=== PATIENT | female | born 1955 | race Caucasian/White ===

== ENCOUNTER 2019-04-05 16:05 | Observation (INO) | payer MEDICARE, OTHER ==
[2019-04-05] MEDS ORDERED: 0.9 % SODIUM CHLORIDE 1,000 ML IV ONE (16:37)
[2019-04-05] MEDS ORDERED: ONDANSETRON HCL/PF 4 MG/ 2ML VIAL IVP ONE (16:37)
--- NOTE | 2019-04-05 16:39 | ED Physician Documentation ---
Nausea/Vomiting/Diarrhea - HISTORIAN Historian: patient - HPI Stated Complaint: N/V FLU EXPOSURE Chief Complaint: Nausea,Vomiting,Diarrhea Additional Information: 63 year old female presents with c/o exposure to the flu; she c/o nausea that started yesterday; she last ate oatmeal yesterday morning; she had a couple of episodes of diarrhea today; family state that patient had a ? syncopal episode. She has been taking her blood pressure meds and not eating or drinking; she is hypotensive. She states that one of her doctors stated that she did not need blood pressure medication and the other said she did and doubled it. Patient appears to be in no acute distress; does not appear dehydrated; she last took her blood pressure medication at 10 a.m. this morning; it is suggested that hypotensive symptoms are related to medication. Onset: hours Duration: gradual Timing: gradual onset Context: denies: out of country travel Severity: moderate - Associated Symptoms Diarrhea: mild Abdominal Pain: none - ROS CONST: none CVS/RESP: denies: chest pain, shortness of breath, cough GI/: none EYES/ENT: none MS/SKIN/LYMPH: denies: leg swelling NEURO/PSYCH: fainting (? syncopal episode prior to arrival) - PAST HX Past History: diabetes Type 2 Other History: hypertension Surgeries/Procedures: cholecystectomy, hysterectomy, cardiac stent Immunizations: influenza, pneumovax, UTD Allergies/Adverse Reactions: Allergies Allergy/AdvReac Type Severity Reaction Status Date / Time codeine Allergy Verified 04/05/19 16:40 Penicillins Allergy Verified 04/05/19 16:40 Sulfa (Sulfonamide Allergy Verified 04/05/19 16:40 Antibiotics) Home Medications: Ambulatory Orders Medication Instructions Recorded Carvedilol [Coreg] 25 mg PO BS 04/05/19 Insulin Detemir [Levemir Flextouch] 60 unit SQ HS 04/05/19 Losartan Potassium [Cozaar] 50 mg PO DAILY 04/05/19 Metformin HCl [Glucophage] 1,000 [place] [id number] 04/05/19 Warfarin Sodium 7.5 mg PO [id number] 04/05/19 Warfarin Sodium [Coumadin] 10 mg PO [id number] 04/05/19 - SOCIAL HX Smoking History: non-smoker Alcohol Use: none Drug Use: none - FAMILY HX Family History: none - VITAL SIGNS Vital Signs: Vital Signs Temp Pulse Resp BP Pulse Ox 97.7 F 72 20 132/68 95 04/05/19 21:42 04/05/19 21:42 04/05/19 21:42 04/05/19 21:42 04/05/19 21:42 - REVIEWED ASSESSMENTS Nursing Assessment Reviewed: Yes Vitals Reviewed: Yes ED Results Lab/Radiology - Lab Results Lab Results: Lab Results 04/05/19 04/05/19 04/05/19 17:00 16:25 16:25 WBC RBC Hgb Hct MCV MCH MCHC RDW Plt Count Neut % (Auto) Lymph % (Auto) Jay % (Auto) Eos % (Auto) Baso % (Auto) Neut # (Auto) Lymph # (Auto) Jay # (Auto) Eos # (Auto) Baso # (Auto) PT 18.1 Seconds H Seconds (8.8-11.9) INR 1.75 H (0.80-1.10) Sodium 140 mmol/L mmol/L (137-145) Potassium 4.9 mmol/L mmol/L (3.5-5.1) Chloride 99 mmol/L mmol/L (98-107) Carbon Dioxide 28 mmol/L mmol/L (22-30) Anion Gap 17.9 BUN 47 mg/dL H mg/dL (7-17) Creatinine 1.75 mg/dL H mg/dL (0.52-1.04) Estimated Creat Clear 56 Est GFR ( Amer) 38 L (60 - ) Est GFR (Non-Af Amer) 31 L (60 - ) Glucose 123 mg/dL H mg/dL (74-106) Calcium 8.4 mg/dL mg/dL (8.4-10.2) Total Bilirubin 2.8 mg/dL H mg/dL (0.2-1.3) AST 59 U/L H U/L (15-46) ALT 30 U/L U/L (4-35) Alkaline Phosphatase 97 U/L U/L (38-126) Troponin I 0.038 ng/mL H ng/mL (0.012-0.034) NT-Pro-B Natriuret Pep 1014.8 pg/mL H pg/mL (15.0-125.5) Total Protein 7.4 g/dL g/dL (6.3-8.2) Albumin 4.1 g/dL g/dL (3.5-5.0) 04/05/19 16:25 WBC 5.00 K/ul K/ul (4.00-12.00) RBC 4.31 M/ul M/ul (3.90-5.20) Hgb 13.7 g/dL g/dL (11.5-16.0) Hct 39.8 % % (34.5-46.5) MCV 92.0 fl fl (80.0-100.0) MCH 31.7 pg pg (28.0-34.0) MCHC 34.3 g/dL g/dL (30.0-36.0) RDW 12.1 % % (11.3-14.3) Plt Count 165 K/mm3 K/mm3 (130-400) Neut % (Auto) 77.3 % % (39.0-79.0) Lymph % (Auto) 14.3 % L % (16.0-50.0) Jay % (Auto) 5.4 % % (0.0-11.0) Eos % (Auto) 2.4 % % (0.0-6.8) Baso % (Auto) 0.6 % % (0.0-1.5) Neut # (Auto) 3.9 # k/uL # k/uL (1.4-7.7) Lymph # (Auto) 0.7 # k/uL # k/uL (0.6-4.0) Jay # (Auto) 0.3 # k/uL # k/uL (0.0-0.9) Eos # (Auto) 0.1 # k/uL # k/uL (0.0-0.6) Baso # (Auto) 0.0 # k/uL # k/uL (0.0-0.5) PT INR Sodium Potassium Chloride Carbon Dioxide Anion Gap BUN Creatinine Estimated Creat Clear Est GFR ( Amer) Est GFR (Non-Af Amer) Glucose Calcium Total Bilirubin AST ALT Alkaline Phosphatase Troponin I NT-Pro-B Natriuret Pep Total Protein Albumin - Orders Orders: ED Orders Category Date Time Status Continuous Pulse Oximetry Q4 Care 04/05/19 16:[address] IV Lock 1T Care 04/05/19 16:32 Active CBC/PLATELET/DIFF Routine Lab 04/05/19 16:25 Completed CMP Routine Lab 04/05/19 16:25 Completed INFLUENZA A&B Stat Lab 04/05/19 16:37 Ordered NT BNP Stat Lab 04/05/19 17:00 Completed PT-INR Routine Lab 04/05/19 16:25 Completed TROPONIN I Stat Lab 04/05/19 16:25 Completed URINALYSIS Routine Lab 04/05/19 Ordered 0.9 % Sodium Chloride [Normal Saline] 1,000 ml Med 04/05/19 16:37 Discontinued IV NOW Chem Sticks Med 04/05/19 16:32 Discontinued 1 each MC NOW ONE Ondansetron HCl/Pf [Zofran] Med 04/05/19 16:37 Discontinued 4 mg IVP NOW ONE EKG WITH COMPARISON Stat Ther 04/05/19 Completed Nausea Physical Exam - EXAM General Appearance: no acute distress, alert EENT: ENT inspection normal, pharynx normal Neck: normal inspection, supple. No: carotid bruit Respiratory: chest non-tender, breath sounds normal CVS: reg rate & rhythm, heart sounds normal, equal pulses, no murmur Abdomen: non-tender Back: non-tender Skin: warm/dry, normal color Extremities: non-tender, normal range of motion Neuro/Psych: oriented X3, CN's nml as tested, motor nml, sensation nml, mood/affect nml, cognition normal Discharge Clincal Impression: Hypotension due to medication Comments: Will admit patient observation until blood pressure meds marin off. Condition: Good Decision to Admit: [id number] Decision Time: 18:00
[2019-04-05 16:46] LABS: BASOPHILS % 0.6 % (0.0-1.5); NEUTROPHILS # 3.9 # k/uL (1.4-7.7)
[2019-04-05] MEDS ORDERED: IPRATROPIUM/ALBUTEROL SULFATE 3 ML AMPUL.NEB NEB PRN (18:19)
[2019-04-05 18:57] VITALS: BMI 35.6
[2019-04-05] MEDS ORDERED: SODIUM CHLORIDE 0.9 % (FLUSH) 10 ML DISP.SYRIN IV SCH (21:00)
[2019-04-05] MEDS ORDERED: IPRATROPIUM/ALBUTEROL SULFATE 3 ML AMPUL.NEB NEB ONE (21:33)
--- NOTE | 2019-04-06 06:28 | Discharge Summary ---
Discharge Summary - Discharge [facility] Admission Date: 04/05/19 Discharge Date: 04/06/19 Discharge To: Home History of Present Illness: 63 year old female presented to the ER with c/o exposure to the flu; she c/o nausea that started yesterday; she last ate oatmeal yesterday morning; she had a couple of episodes of diarrhea today; family state that patient had a ? syncopal episode. She has been taking her blood pressure meds and not eating or drinking; she is hypotensive. She states that one of her doctors stated that she did not need blood pressure medication and the other said she did and doubled it. Patient appears to be in no acute distress; does not appear dehydrated; she last took her blood pressure medication at 10 a.m. this morning; it is suggested that hypotensive symptoms are related to medication. Condition at Discharge: Stable Home Medications: Ambulatory Orders Medication Instructions Recorded Carvedilol [Coreg] 25 mg PO BS 04/05/19 Insulin Detemir [Levemir Flextouch] 60 unit SQ HS 04/05/19 Losartan Potassium [Cozaar] 50 mg PO DAILY 04/05/19 Metformin HCl [Glucophage] 1,000 [place] [id number] 04/05/19 Warfarin Sodium 7.5 mg PO [id number] 04/05/19 Warfarin Sodium [Coumadin] 10 mg PO [id number] 04/05/19 Consultations this Visit: None Procedures this Visit: None Allergies/Adverse Reactions: Allergies Allergy/AdvReac Type Severity Reaction Status Date / Time codeine Allergy Verified 04/05/19 16:40 Penicillins Allergy Verified 04/05/19 16:40 Sulfa (Sulfonamide Allergy Verified 04/05/19 16:40 Antibiotics) Discharge Summary: Patient is feeling much better today; blood pressure is back up to normal. She will follow up with PCP to discuss her medications and dosages. Hospital Course: Monitoring of VS - Final Diagnosis (1) Hypotension due to medication Problems: Corrected Right or Left: Right
[2019-04-06 07:24] LABS: eGFR (Non-African) 42
[2019-04-06] MEDS ORDERED: SODIUM CHLORIDE 0.9% ONE (07:28)
[2019-04-06] MEDS ORDERED: [UNRECOGNIZED DRUG - OTHER] ONE (07:28)
[2019-04-06 08:14] LABS: BASOPHILS % 0.2 % (0.0-1.5); NEUTROPHILS # 2.8 # k/uL (1.4-7.7)
[2019-04-06 08:50] VITALS: BP 159/86
== END 2019-04-06 10:40 | disposition home or self-care (01) ==
LOC: ED 16:05 → SOUTH 17:56
PROVIDERS: ADMIT Nurse Practitioner Family; ATTEND Nurse Practitioner Family
DX: I95.2 Hypotension due to drugs (principal)
CPT/HCPCS: 36415; 80053; 83880; 84484; 85025; 85610; 93005; 94640; 96361; 96374; 99218; 99282; 99284; G0378; J2405; J7030; S1016